=== PATIENT | male | born 1970 | race Caucasian/White ===

== ENCOUNTER 2020-03-22 13:53 | Emergency (ER) | payer SELFPAY ==
[2020-03-22 14:21] VITALS: BP 145/84
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
== END 2020-03-23 02:30 | disposition home or self-care (01) ==
LOC: ED 13:53
DX: S52.122A Displaced fracture of head of left radius, initial encounter for closed fracture (principal); X58.XXXA Exposure to other specified factors, initial encounter; Y93.89 Activity, other specified; Y92.89 Other specified places as the place of occurrence of the external cause; Y99.8 Other external cause status